=== PATIENT | female | born 1925 | race Caucasian/White ===

== ENCOUNTER 2017-03-25 01:57 | Emergency (ER) | payer MEDICARE ==
[~2017-03-25] VITALS: Ht 170.2 cm; Wt 68.2 kg
[~2017-03-25 01:57] MED LIST: ALEN35TA3 PO; LATA2.5D5 OU; MVI PO; TIMO5SOL4 OU; [UNRECOGNIZED DRUG - OTHER] OD; calcium
[2017-03-25 02:06] VITALS: BP 175/63; PULSE 71; RESP 18; O2SAT 97
--- NOTE | 2017-03-25 02:07 | ED.REPORT ---
HPI-Altered Mental Status Date of Service Mar 25, 2017 ED Provider: Ebenezer Bryant MD Pt is a 89 year old female with a history of macular degeneration who presents to the ED via EMS complaining of right clavicle pain onset prior to arrival. She c/o left arm pain. She denies head pain and any other symptoms. EMS reports that they noticed evidence of a fall, but the pt has no recollection of falling. Per family, her mental status is baseline for her. Nursing Notes Stated Complaint: R SHOULDER PAIN Chief Complaint: General Complaint Nursing Notes Reviewed: Yes Allergies: Coded Allergies: No Known Allergies (Verified , 06/09/13) Scheduled ([asopt eye drops]) 1 DROP OD BID ([calcium]) DAILY Alendronate-Expunged Drug, Do Not Renew! (Alendronate-Expunged Drug, Do Not Renew!) 35 Mg Tablet 35 MG PO thurs Cefuroxime Axetil (Cefuroxime) 500 Mg Tablet 500 MG PO BID Latanoprost-Expunged Drug, Do Not Renew! (Xalatan-Expunged Drug, Do Not Renew!) 2.5 Ml Bottle 1 DROP OU HS Therapeutic Multivit/Minerals-Expunged Drug, (Therapeutic Multivit/Minerals- Expunged Drug,) 1 Ea Tab 1 TAB PO DAILY Timolol-Expunged Drug, Do Not Renew! (Timolol XE 0.5%-Expunged Drug, Do Not Renew!) 5 Ml Mary.gel 1 DROP OU BID General Time Seen by MD: 02:06 Chief Complaint Other (right clavicle pain) Hx Obtained From: Patient, EMS Arrived By: Ambulance Sudden in Onset?: No Onset Occurred: Just prior to arrival Symptom Duration: Since onset Location: : Neck Quality: Painful Radiation: : Does not radiate Severity: Current: Moderate Severity: Maximum: Moderate Recent Healthcare: No recent doctor visit, No recent hospitalization Similar Sx Previous: No Past Medical History Past Medical History Glaucome Macular degeneration Past Surgical History Reports: Hysterectomy Smoking History Former Smoker Social History Alcohol Use: 3-5 per day (2 glasses of wine per day) Ambulatory Status Independent Review of Systems Denies head pain + Right clavicle pain Constitutional: Denies: Fever Complete sys rev & neg: except as marked. Musculoskeletal: Reports: Extremity pain Physical Exam Initial Vital Signs Vital Signs (First) Date Time Temp Pulse Resp B/P Pulse Ox O2 Delivery O2 Flow Rate FiO2 03/25/17 02:06 36.6 71 18 175/63 97 Room Air Initial VS: Reviewed Abdomen / GI: Soft, Non-tender Skin: Warm, Dry, No cyanosis Psychiatric: Mood/affect normal, Behavior normal General/Constitutional: Awake, Alert Head / Eyes: Atraumatic, Normocephalic Neck: Atraumatic, Full range of motion Respiratory / Chest: Atraumatic, Breath sounds NL, Breath sounds = bilat Chest contution of proximal right clavicle. Cardiovascular: Heart rate NL, Regular rhythm, Heart sounds NL Neurologic: CN II - XII intact Mildly confused. Poor short-term memory. Oriented to place and person. Upper Extremity / MS: Neurologic intact, Vascular intact Scrapes along extensive surface of left arm. Interpretation & Diagnostics CT cervical spine: CONCLUSION: No CT evidence of fracture or dislocation. Transmitted to the ED at 02:43 by Trenton Will M.D. Lab Results Interpretation Result Diagram: 03/25/17 0220 03/25/17 0220 Test 03/25/17 02:20 03/25/17 03:43 White Blood Count 5.9th/mm3 (3.8-10.1) Red Blood Count 4.91mil/mm3 (3.90-5.20) Hemoglobin 14.0g/dL (12.0-15.6) Hematocrit 41.9% (35.0-46.0) Mean Corpuscular Volume 85.3fL (81-100) Mean Corpuscular Hemoglobin 28.5pg (27.0-35.0) Mean Corpuscular Hemoglobin Concent 33.4% (32.0-37.0) Red Cell Distribution Width 13.1% (12.3-15.4) Platelet Count 173bil/L (150-400) Neutrophils (%) (Auto) 89.0% (40-74) Lymphocytes (%) (Auto) 5.2% (14-46) Monocytes (%) (Auto) 5.1% (4-12) Eosinophils (%) (Auto) 0.3% (0-5) Basophils (%) (Auto) 0.2% (0-3) Sodium Level 142mEq/L (134-144) Potassium Level 3.9mEq/L (3.5-5.2) Chloride Level 105mEq/L (97-108) Carbon Dioxide Level 23mmol/L (18-29) Blood Urea Nitrogen 8mg/dL (8-27) Creatinine 0.66mg/dL (0.57-1.00) Estimat Glomerular Filtration Rate 121mL/min (>59) Glucose Level 159mg/dL (60-99) Lactic Acid Level 1.2mmol/L (0.4-2.0) Calcium Level 9.1mg/dL (8.5-10.1) Total Bilirubin 0.3mg/dL (0.0-1.2) Aspartate Amino Transf (AST/SGOT) 19U/L (0-50) Alanine Aminotransferase (ALT/SGPT) 14U/L (0-32) Alkaline Phosphatase 74U/L (25-165) Total Protein 7.0g/dL (6.4-8.4) Albumin 4.1g/dL (3.4-5.0) Alcohols 52mg/dL (0-10) Urine Color Yellow (YELLOW) Urine Appearance Clear (CLEAR,HAZY) Urine pH 6.5 (5.0-8.0) Urine Specific Mchenry 1.015 (1.003-1.035) Urine Protein Negativemg/dL (NEG,TRACE) Urine Glucose (UA) Negativemg/dL (NEGATIVE) Urine Ketones Negativemg/dL (NEGATIVE) Urine Occult Blood Trace (NEGATIVE) Urine Nitrite Negative (NEGATIVE) Urine Bilirubin Negative (NEGATIVE) Urine Urobilinogen Normalmg/dL (NORMAL) Urine Leukocyte Esterase Small (NEGATIVE) Urine RBC 0-2/hpf (0-2) Urine WBC 6-10/hpf (0-5) Urine Epithelial Cells Few/hpf (NONE-MOD) Urine Crystals None seen (NONE SEEN) Urine Bacteria Few/hpf (NONE-FEW) Urine Hyaline Casts None/lpf (NONE) Urine Granular Casts None seen (NONE SEEN) Urine Waxy Casts None seen (NONE SEEN) Urine Red Blood Cell Casts None seen (NONE SEEN) Urine White Blood Cell Casts None seen (NONE SEEN) Urine Mucus None seen (None Seen) Urine Trichomonas None seen (NONE SEEN) Urine Yeast None (NONE SEEN) Urinalysis Comment None Urine Culture Reflexed Indicated ECG Interpretation ECG Interpretation: Sinus rhythm with a rate of 69 Probable left atrial enlargement Inferior infarct, old Lateral leads are also involved Time: 02:13 Interpreted by: ED physician X-Ray Chest Interpretation Chest Xray Interpretation: Negative View: Portable, 1 view Interpretation / Wet Read by: Wet read ED physician X-Ray Interpretation Xray Interpretation: Negative X-Ray Ordered: Shoulder right Interpretation / Wet Read by: Wet read ED physician CT Head Interpretation IMPRESSION: No CT evidence of hermorrhage, mass, or acute infarct. Transmitted to the ED at 02:37 by Trenton Crook M.D. Study: Head CT no contrast Interpretation / Wet Read by: Interpret - Radiologist Re-Eval/Medical Decision Med Decision/Clinical Course 89-year-old presents after an apparent fall with some memory loss. CT negative. Alcohol is moderately elevated more than five hours after last ingestion. This suggests her alcohol level when she quit drinking was about 150. Discussed this with her son who is present with her. Suspect alcohol may well if had an influence in causing her to fall tonight. She has an incidental minor UTI which we will treat. Discharged in stable condition. Source of Hx: Old records Re-Evaluation/Progress : Time of Eval: 03:43 Re-Evaluation/Progress Note: Pt rechecked. Informed pt of plan for discharge. Pt understands and agrees with plan for discharge. F/U instructions and RTER warnings given. All questions addressed. Counseled Regarding: Diagnosis, Lab results, Need for follow-up, When/why to return to ED Patient Discharge & Departure Impression: Primary Impression: Fall from ground level Additional Impressions: Shoulder contusion Abrasion of arm, left Alcohol intoxication Disposition: Home Discharge Condition All VS Reviewed: Yes Condition: Stable Patient Instructions: Abrasion (ED), At-Risk Alcohol Use (ED), Contusion in Adults (ED) Additional Instructions: Your alcohol level was still fairly substantial, several hours after you quit drinking. This suggests that you were intoxicated earlier, and this puts you at risk for severe falls. Bacitracin to abraded areas three times daily and keep covered until healed. Follow-up with your doctor in the office. Referrals: Pooja Snow MD (PCP) Scribe Attestation Portions of this note were transcribed by Patricia Cheney. I, Dr. Bryant personally performed the history, physical exam and medical decision-making; I reviewed and confirmed the accuracy of the information in the transcribed note. Signed by: Nilesh Lovell, 03/24/17. copies to: Pooja Snow MD,Ebenezer Latif MD Mar 25, 2017 02:07 Patricia Peraza Mar 25, 2017 03:49
[2017-03-25 02:28] LABS: MONOCYTES % (AUTO) 5.1 % (4-12); Mean Corpuscular Hemoglobin 28.5 pg (27.0-35.0); Mean Corpuscular Volume 85.3 fL (81-100); Platelet Count 173 bil/L (150-400)
[2017-03-25 02:29] LABS: BASOPHILS % (AUTO) 0.2 % (0-3); EOSINOPHILS % (AUTO) 0.3 % (0-5)
[2017-03-25 02:57] VITALS: BP 170/63; PULSE 68; RESP 22; O2SAT 96
[2017-03-25 03:40] VITALS: BP 168/59; PULSE 82; RESP 22; O2SAT 96
[2017-03-25] MEDS ORDERED: TdaP Vaccine 0.5 mL Inj IM ONE (03:40)
[2017-03-25 03:56] LABS: APPEARANCE,URINE CLEAR (CLEAR,HAZY); COLOR,URINE YELLOW (YELLOW); OCCULT BLOOD,URINE TRACE (NEGATIVE); PH,URINE 6.5 (5.0-8.0); UROBILINOGEN,URINE NORMAL (NORMAL)
[2017-03-25] MEDS ORDERED: CEFU500T61 PO (04:05)
[2017-03-25] MEDS ORDERED: Ketorolac 15 mg/mL Inj IVPUSH ONE (04:15)
[2017-03-25 04:35] VITALS: BP 168/59; PULSE 89; RESP 18; O2SAT 95
--- NOTE | 2017-03-25 08:04 | DRSVH ---
PROCEDURE: CT BRAIN WITHOUT CONTRAST ([id number]) INDICATIONS: fall TECHNIQUE: Noncontrast 4.5 mm thick angled axial sections acquired from the foramen magnum to the vertex, with c oronal reformats. COMPARISON: [facility], CT, BRAIN W/O CONTRAST, 06/12/2012, 10:54. FINDINGS: Image quality: Excellent. CSF spaces: Basal cisterns are patent. No extra-axial fluid collections. The ventricles are symmet alex in size and shape. Brain: No intracranial bleeds or masses. There is cerebral volume loss for age, with resultant vent ricular and sulcal prominence. There are periventricular and deep white matter chronic small vessel ischemic changes. There is intracranial internal carotid artery atherosclerosis. Skull and face: Calvarium and visualized facial bones appear intact, without suspicious lesions. Sinuses: Visualized sinuses and mastoids are clear. IMPRESSION: 1. No acute intracranial abnormalities. 2. Cerebral volume loss and chronic microvascular ischemic changes. No significant discrepancy with the night clerk radiology preliminary report. Dictated by: Linda Solitario M.D. on 03/25/2017 at 8:01 Approved by: Linda Solitario M.D. on 03/25/2017 at 8:02
--- NOTE | 2017-03-25 08:13 | DRSVH ---
PROCEDURE: CT CERVICAL SPINE WITHOUT CONTRAST ([id number]) INDICATIONS: fall TECHNIQUE: Noncontrast 3 mm thick sections acquired from the skull base to the T4 level. Sagittal and coronal r eformats were then constructed. For radiation dose reduction, the following was used: automated exp osure control, adjustment of mA and/or kV according to patient size. COMPARISON: None. FINDINGS: Image quality: Excellent. Bones: No fractures or dislocations. Visualized superior ribs are intact. There is moderate degener ative disease I see 5-C6. Bilateral facet arthropathy is present, most pronounced at C3-C4 on the rig ht and C4-C5 on the left. Soft tissues: Prevertebral soft tissues are normal in thickness. No paravertebral hematomas. No ap ical pneumothoraces. IMPRESSION: No fractures. Degenerative changes in cervical spine. No significant discrepancy with the restaurant shift leader radiology preliminary report. Dictated by: Linda Solitario M.D. on 03/25/2017 at 8:09 Approved by: Linda Solitario M.D. on 03/25/2017 at 8:11
--- NOTE | 2017-03-25 08:36 | DRSVH ---
PROCEDURE: X-RAY CHEST ONE VIEW, PORTABLE ([id number]) INDICATIONS: fall TECHNIQUE: One view of the chest was acquired. COMPARISON: None. FINDINGS: Surgical changes and devices: None. Lungs and pleura: No pleural effusions or pneumothorax. Lungs are clear. Mediastinum: Mediastinal contours appear normal. Heart size is normal. Aortic calcifications. Bones and chest wall: No suspicious bony lesions. Overlying soft tissues appear unremarkable. IMPRESSION: 1. No acute cardiopulmonary abnormality. 2. No visible fracture or contusion. Dictated by: Yfn Jiménez M.D. on 03/25/2017 at 8:33 Approved by: Yfn Jiménez M.D. on 03/25/2017 at 8:35
--- NOTE | 2017-03-25 08:48 | DRSVH ---
PROCEDURE: X-RAY RIGHT SHOULDER, MINIMUM TWO VIEWS ([id number]) INDICATIONS: fall TECHNIQUE: 3 views of the shoulder were acquired. COMPARISON: None. FINDINGS: Bones: No fractures or dislocations. No suspicious bony lesions. Visualized ribs appear intact. De generative a.c. joint disease. Soft tissues: Small calcification is present over the humeral head laterally. Aortic calcifications. IMPRESSION: 1. No fracture or dislocation. 2. Calcific tendinopathy. 3. Mild osteoarthritis of the a.c. joint. Dictated by: Yfn Jiménez M.D. on 03/25/2017 at 8:45 Approved by: Yfn Jiménez M.D. on 03/25/2017 at 8:46
== END 2017-03-25 04:43 | disposition home or self-care (01) ==
LOC: SED 01:57 → EDBD 01:57 → SED 04:43
DX: S40.011A Contusion of right shoulder, initial encounter (principal); S50.812A Abrasion of left forearm, initial encounter; F10.129 Alcohol abuse with intoxication, unspecified; W01.0XXA Fall on same level from slipping, tripping and stumbling without subsequent striking against object, initial encounter; Y93.89 Activity, other specified; Y99.8 Other external cause status; Y92.009 Unspecified place in unspecified non-institutional (private) residence as the place of occurrence of the external cause; N39.0 Urinary tract infection, site not specified; I10 Essential (primary) hypertension; Z87.891 Personal history of nicotine dependence
CPT/HCPCS: 36415; 70450; 71010; 72125; 73030; 80053; 81000; 83605; 85025; 87086; 87088; 90471; 90715; 93005; 96374; 99285; G0480; J1885